=== PATIENT | male | born 1975 | race Caucasian/White ===

== ENCOUNTER 2018-06-08 16:01 | Emergency (ER) | payer OTHER ==
[2018-06-08 16:12] VITALS: BP 118/75
[2018-06-08] MEDS ORDERED: HYDROcodone/ACETAMIN 5-325 MG* 1 TAB PO ONE (16:20)
[2018-06-08] MEDS ORDERED: Ondansetron ODT TAB* 4 MG PO ONE (16:21)
--- NOTE | 2018-06-08 16:27 | UC ---
UC General HPI - HPI Summary HPI Summary: pt is c/o sudden pain in his "left kidney" around 11am. took 2 Tylenol ES with no relief. no hx of injury or kidney stones. denies any testicular pain. - History of Current Complaint Chief Complaint: UCBackPain Stated Complaint: LOW BACK PAIN Time Seen by Provider: 06/08/18 16:11 Hx Obtained From: Patient Onset/Duration: Sudden Onset Timing: Constant - but increases and decreases in intensity. Pain Intensity: 9 Aggravating: nothing Alleviating: nothing Associated Signs & Symptoms: Positive: Nausea - from pain. Negative: Diarrhea, Dysuria, Vomiting - Allergy/Home Medications Allergies/Adverse Reactions: Allergies Allergy/AdvReac Type Severity Reaction Status Date / Time No Known Allergies Allergy Verified 06/08/18 16:13 Home Medications: Home Medications Acetaminophen [Extra Strength Non-Aspirin] 1,000 mg PO DAILY 06/08/18 [History Confirmed 06/08/18] Amoxicillin PO (*) [Amoxicillin 875 MG (*)] 875 mg PO BID 06/08/18 [History Confirmed 06/08/18] PMH/Surg Hx/FS Hx/Imm Hx Previously Healthy: Yes - Surgical History Surgical History: None - Family History Known Family History: Positive: None - Social History Occupation: Employed Full-time Lives: With Family Alcohol Use: None Substance Use Type: None Smoking Status (MU): Heavy Every Day Tobacco Smoker - Immunization History Vaccination Up to Date: Yes Review of Systems Constitutional: Negative Skin: Negative Eyes: Negative ENT: Negative Respiratory: Negative Cardiovascular: Negative Gastrointestinal: Nausea, Other - L flank pain Genitourinary: Negative Motor: Negative Neurovascular: Negative Musculoskeletal: Negative Neurological: Negative Psychological: Negative Is Patient Immunocompromised?: No All Other Systems Reviewed And Are Negative: Yes Physical Exam Triage Information Reviewed: Yes Appearance: Pain Distress, Other: - pacing while holding L flank area Vital Signs: Initial Vital Signs Temp 98.3 F 06/08/18 16:08 Pulse 61 06/08/18 16:08 Resp 16 06/08/18 16:08 BP 118/75 06/08/18 16:08 Pulse Ox 100 06/08/18 16:08 Vital Signs Reviewed: Yes Eyes: Positive: Conjunctiva Clear ENT: Positive: Normal ENT inspection Neck: Positive: Supple, Nontender, No Lymphadenopathy Respiratory: Positive: Lungs clear, Normal breath sounds Cardiovascular: Positive: RRR, No Murmur Abdomen Description: Positive: Nontender, No Organomegaly, Soft. Negative: CVA Tenderness (R), CVA Tenderness (L), Distended, Guarding, Pulsatile Mass Bowel Sounds: Positive: Present Musculoskeletal: Positive: Other: - Back has no deformity, swelling, discoloration and is non tender. ROM is intact s/v/m intact x4. Neurological: Positive: Alert Psychological: Positive: Normal Response To Family, Age Appropriate Behavior Skin Exam: Normal Diagnostics - Laboratory Diagnostic Studies Completed/Ordered: u/a 1+ ketones and trace blood Course/Dx - Course Course Of Treatment: Unable to confirm a kidney stone on CT and pt having intractable pain with n/v thus ER transfer required for additonal evaluation, tx , pain control. pt agrees to transfer but is refusing ems, family driving him despite risk of mva, worsening, disability, . pt is A&Ox3 and able to make decisions thus I must respect the ems refusal. [facility] ER called report given to Grace Morales. advised of CT result(no stone) plus intractable N/V/ pain L flank/back. advised ems refused. - Differential Dx - Multi-Symptom Differential Diagnoses: Other - renal colic , pancreatic/biliary pathology, bowel pathology. doubt vascualr pathology. Provider Diagnoses: Intractable L flank/back pain. N/V Discharge - Sign-Out/Discharge Documenting (check all that apply): Patient Departure - Discharge Plan Condition: Stable Disposition: TRANS HIGHER LVL OF CARE FAC Referrals: Darrick Dillon MD [Primary Care Provider] - Additional Instructions: LEAVE HERE AND GO DIRECTLY TO THE [facility] ER DISCUSSED. - Billing Disposition and Condition Condition: STABLE Disposition: Trans Higher Lvl of Care Fac
--- NOTE | 2018-06-08 16:54 | RAD ---
INDICATION: Acute left flank pain COMPARISON: None TECHNIQUE: Noncontrast axial source images were acquired from the level hemidiaphragms to the symphysis pubis as part of CT imaging for renal stone. Lung bases: The lung bases are clear. Liver: The liver is normal in size. Noncontrast imaging shows no evidence of a hepatic mass or ductal dilatation. There is a radiodensity involving the caudal liver which could represent a calcification. Gallbladder: There are no calcified gallstones. There is no evidence of wall thickening or pericholecystic fluid.. Spleen: The spleen is normal in size. The noncontrast CT appearance is normal. Pancreas: Noncontrast imaging shows no pancreatic mass or ductal dilitation. Adrenal glands: No masses are identified. Kidneys/Bladder: There is no evidence of nephrolithiasis or CT evidence of hydronephrosis. Noncontrast imaging shows no evidence of a renal mass. The bladder is unremarkable.. Adenopathy: There is no evidence of intraperitoneal or retroperitoneal adenopathy. Evaluation is limited without oral contrast. Fluid collections: There are no free or localized fluid collections. Vessels: The aorta and iliac vessels are normal in caliber. There are no significant atherosclerotic changes. The IVC appears normal Pelvic organs: The prostate and seminal vesicles appear normal GI tract: Evaluation of the bowel is limited without oral contrast. The stomach, small bowel, and lower GI tract appear grossly grossly normal other than the presence of moderate retained stool throughout the colon. There are no obstructive findings. There is limited evaluation of the appendix which appears normal. Soft tissues: No soft tissue abnormalities of the extraperitoneal abdomen or pelvis are identified. Osseous structures: There are no acute osseous findings. IMPRESSION: No CT evidence of urolithiasis. Moderate retained stool. No mass or inflammatory changes
== END 2018-06-08 17:13 | disposition short-term general hospital (02) ==
LOC: UCCORT 16:01
DX: M54.5 Low back pain (principal); R10.9 Unspecified abdominal pain; R11.2 Nausea with vomiting, unspecified; F17.200 Nicotine dependence, unspecified, uncomplicated
CPT/HCPCS: 74176; 81003; 99212; A9270-GY; G0463